=== PATIENT | female | born 1945 | race African-American/Black ===

== ENCOUNTER 2017-07-02 11:06 | Inpatient (IN) ==
[2017-07-02] MEDS ORDERED: SODIUM CHLORIDE 0.9% 500 ML IV STA (11:24)
[2017-07-02] MEDS ORDERED: ACETAMINOPHEN 500 MG TABLET PO STA (11:43)
[2017-07-02] MEDS ORDERED: ACETAMINOPHEN 500 MG TABLET ONE (11:44)
[2017-07-02 12:29] LABS: Basophils % 0.1 % (0.0-0.8); Eosinophils % 0.2 % (0.00-10.9); Hematocrit 36.6 VOL% (35.7-47.0); Hemoglobin 12.1 GM/DL (12.0-16.0); Immature Granulocytes % 0.4 %; Immature Granulocytes Absolute 0.07 #; Lymphocytes # 0.7 10*3/uL (1.4-4.0); Lymphocytes % 4.1 % (21.3-54.2); Mean Corpuscular HGB Conc 33.1 GM/DL (32-36); Mean Corpuscular Hemoglobin 27 PG (27-34); Mean Corpuscular Volume 82.8 FL (87-102); Mean Platelet Volume 10.8 FL (9.6-12.0); Monocytes # 0.7 10*3/uL (0.11-0.8); Monocytes % 4.3 % (1.7-12.7); Neutrophils # 15.3 10*3/uL (1.4-7.4); Neutrophils % 90.9 % (38.7-73.9); Platelet Count 242 T/CUMM (130-400); Red Blood Count 4.42 MC/CUMM (3.8-5.5); Red Cell Distribution Width 15.2 % (9.3-17.3); White Blood Count 16.8 T/CUMM (4-12)
[2017-07-02 12:48] LABS: Lactic Acid 2.3 MMOL/L (0.4-2.0)
[2017-07-02] MEDS ORDERED: SODIUM CHLORIDE 0.9% 3,450 ML IV ONE ×2 (12:58→15:43)
[2017-07-02 13:02] LABS: Albumin 3.2 G/DL (3.4-5.0); Bilirubin,Total 0.6 MG/DL (0.2-1.0); Calcium 9.1 MG/DL (8.5-10.1); Potassium 3.2 MMOL/L (3.5-5.1); Total Protein 6.6 G/DL (6.4-8.3)
[2017-07-02] MEDS ORDERED: PIPERACILLIN/TAZOBACTAM 3,375 MG VIAL IV ONE (13:08)
[2017-07-02] MEDS ORDERED: SODIUM CHLORIDE 0.9% 100 ML IV ONE (13:09)
[2017-07-02] MEDS: PIPERACILLIN/TAZOBACTAM 3,375 MG in SODIUM CHLORIDE 0.9% 100 ML IV SCH ×2 (13:42→23:51)
[2017-07-02 13:47] LABS: Sedimentation Rate-Westergren 50 MM/HR (0-30)
[2017-07-02 13:54] LABS: Apearance,Urine Slightly Hazy (Clear); Bilirubin,Urine Negative (Negative); Blood, Urine Moderate mg/dL (Negative); Glucose,Urine (UA) Negative (Negative); Ketones,Urine 5 mg/dL (Negative); Mucus,Urine Occasional /LPF (Occasional); Nitrite,Urine Negative (Negative); Protein,Urine 100 MG/DL; RBC,Urine 7 /HPF (0-4); Squamous Epithelial Cell,Urine Occasional /HPF (0-10); Urine Color Yellow (Yellow); Urine Urobilinogen < 2.0 EU/DL (0.2-1.0); WBC,Urine 3 /HPF (0-6)
[2017-07-02] MEDS ORDERED: ONDANSETRON 4 MG/2 ML VIAL IV STA (15:00)
[2017-07-02] MEDS ORDERED: ONDANSETRON 4 MG/2 ML VIAL ONE (15:01)
[2017-07-02] MEDS ORDERED: ONDANSETRON 4 MG/2 ML VIAL IV PRN (16:08)
[2017-07-02] MEDS: SODIUM CHLORIDE 0.9% 1,000 ML IV SCH (17:10)
[2017-07-02] MEDS: METOPROLOL TARTRATE 25 MG TABLET PO SCH (17:27)
[2017-07-02] MEDS ORDERED: VANCOMYCIN INJ 1,000 MG in SODIUM CHLORIDE 0.9% 250 ML IV SCH (18:00)
[2017-07-02] MEDS: VANCOMYCIN INJ 1,750 MG in SODIUM CHLORIDE 0.9% 500 ML IV SCH (20:25)
[2017-07-02] MEDS: ATORVASTATIN 80 MG TABLET PO SCH (20:26)
[2017-07-02] MEDS: PHENYTOIN ER 100 MG CAPSULE PO SCH (20:26)
[2017-07-02] MEDS: levETIRAcetam 500 MG TABLET PO SCH (20:26)
[2017-07-02] MEDS: PANTOPRAZOLE 40 MG TABLET PO SCH (20:26)
[2017-07-02] MEDS: IBUPROFEN 600 MG TABLET PO PRN (21:08)
[2017-07-02] MEDS: diphenhydrAMINE 50 MG/1 ML VIAL IV PRN (22:24)
[2017-07-03 05:48] LABS: Eosinophils # 0.3 10*3/uL (0.0-0.87); Eosinophils % 3.4 % (0.00-10.9); Hemoglobin 10.5 GM/DL (12.0-16.0); Immature Granulocytes % 0.3 %; Immature Granulocytes Absolute 0.03 #; Lymphocytes # 1.1 10*3/uL (1.4-4.0); Lymphocytes % 11.6 % (21.3-54.2); Mean Corpuscular HGB Conc 31.8 GM/DL (32-36); Mean Corpuscular Hemoglobin 27 PG (27-34); Mean Corpuscular Volume 84.6 FL (87-102); Mean Platelet Volume 11.1 FL (9.6-12.0); Monocytes # 0.2 10*3/uL (0.11-0.8); Monocytes % 2.2 % (1.7-12.7); Neutrophils # 7.9 10*3/uL (1.4-7.4); Neutrophils % 82.5 % (38.7-73.9); Platelet Count 206 T/CUMM (130-400); Red Cell Distribution Width 15.5 % (9.3-17.3); White Blood Count 9.5 T/CUMM (4-12)
[2017-07-03] MEDS: PIPERACILLIN/TAZOBACTAM 3,375 MG in SODIUM CHLORIDE 0.9% 100 ML IV SCH ×3 (07:46→21:56)
[2017-07-03] MEDS: ASPIRIN CHEW 81 MG TABLET PO SCH ×2 (08:24→11:16)
[2017-07-03] MEDS: PANTOPRAZOLE 40 MG TABLET PO SCH ×2 (08:24→10:42)
[2017-07-03] MEDS: levETIRAcetam 500 MG TABLET PO SCH ×2 (08:24→21:52)
[2017-07-03] MEDS: METOPROLOL TARTRATE 25 MG TABLET PO SCH ×3 (08:24→16:18)
[2017-07-03] MEDS: FERROUS SULFATE 325 MG TABLET PO SCH (08:24)
[2017-07-03] MEDS: THIAMINE 100 MG TABLET PO SCH (08:24)
[2017-07-03 08:33] LABS: Band Neutrophils 1 % (0-10); Eosinophils 5 % (0-10); Giant Platelets Few; Hypochromasia Slight; Lymphocytes 10 % (20-55); Platelet Estimate Adequate; Segmented Neutrophils 82 % (50-85); Total Cells Counted 100
[2017-07-03] MEDS: VANCOMYCIN INJ 1,750 MG in SODIUM CHLORIDE 0.9% 500 ML IV SCH (14:33)
[2017-07-03] MEDS: SODIUM CHLORIDE 0.9% 1,000 ML IV SCH ×2 (14:33→22:19)
[2017-07-03] MEDS: IBUPROFEN 600 MG TABLET PO PRN (16:21)
[2017-07-03] MEDS: diphenhydrAMINE 50 MG/1 ML VIAL IV PRN (18:45)
[2017-07-03] MEDS: PHENYTOIN ER 100 MG CAPSULE PO SCH (21:55)
[2017-07-03] MEDS: ATORVASTATIN 80 MG TABLET PO SCH (21:56)
[2017-07-04 02:45] LABS: Basophils % 0.2 % (0.0-0.8); Eosinophils # 0.7 10*3/uL (0.0-0.87); Eosinophils % 11.5 % (0.00-10.9); Hematocrit 31.4 VOL% (35.7-47.0); Hemoglobin 10.1 GM/DL (12.0-16.0); Immature Granulocytes % 0.2 %; Immature Granulocytes Absolute 0.01 #; Lymphocytes # 1.6 10*3/uL (1.4-4.0); Mean Corpuscular HGB Conc 32.2 GM/DL (32-36); Mean Corpuscular Hemoglobin 27 PG (27-34); Mean Corpuscular Volume 83.1 FL (87-102); Mean Platelet Volume 10.9 FL (9.6-12.0); Monocytes # 0.4 10*3/uL (0.11-0.8); Monocytes % 5.9 % (1.7-12.7); Neutrophils # 3.7 10*3/uL (1.4-7.4); Neutrophils % 57.2 % (38.7-73.9); Platelet Count 202 T/CUMM (130-400); Red Blood Count 3.78 MC/CUMM (3.8-5.5); Red Cell Distribution Width 15.4 % (9.3-17.3); White Blood Count 6.4 T/CUMM (4-12)
[2017-07-04 03:17] LABS: Potassium 3.4 MMOL/L (3.5-5.1)
[2017-07-04] MEDS: IBUPROFEN 600 MG TABLET PO PRN (04:23)
[2017-07-04] MEDS: diphenhydrAMINE 50 MG/1 ML VIAL IV PRN (04:24)
[2017-07-04 05:29] LABS: Band Neutrophils 2 % (0-10); Eosinophils 8 % (0-10); Lymphocytes 25 % (20-55); Platelet Estimate Normal; Segmented Neutrophils 59 % (50-85); Total Cells Counted 100
[2017-07-04 05:30] LABS: Anisocytosis Slight; Macrocytosis Slight
[2017-07-04] MEDS: PIPERACILLIN/TAZOBACTAM 3,375 MG in SODIUM CHLORIDE 0.9% 100 ML IV SCH ×3 (06:02→23:55)
[2017-07-04] MEDS: FERROUS SULFATE 325 MG TABLET PO SCH (08:39)
[2017-07-04] MEDS: PANTOPRAZOLE 40 MG TABLET PO SCH (08:39)
[2017-07-04] MEDS: METOPROLOL TARTRATE 25 MG TABLET PO SCH ×2 (08:39→17:15)
[2017-07-04] MEDS: ASPIRIN CHEW 81 MG TABLET PO SCH (08:40)
[2017-07-04] MEDS: levETIRAcetam 500 MG TABLET PO SCH ×2 (08:40→21:33)
[2017-07-04] MEDS: THIAMINE 100 MG TABLET PO SCH (08:40)
[2017-07-04] MEDS: VANCOMYCIN INJ 1,750 MG in SODIUM CHLORIDE 0.9% 500 ML IV SCH (12:55)
[2017-07-04] MEDS: SODIUM CHLORIDE 0.9% 1,000 ML IV SCH (15:38)
[2017-07-04] MEDS: PHENYTOIN ER 100 MG CAPSULE PO SCH (21:33)
[2017-07-04] MEDS: ATORVASTATIN 80 MG TABLET PO SCH (21:34)
[2017-07-05 05:26] LABS: Eosinophils # 0.6 10*3/uL (0.0-0.87); Eosinophils % 15.1 % (0.00-10.9); Hematocrit 29.3 VOL% (35.7-47.0); Hemoglobin 9.5 GM/DL (12.0-16.0); Lymphocytes # 1.4 10*3/uL (1.4-4.0); Lymphocytes % 38.6 % (21.3-54.2); Mean Corpuscular HGB Conc 32.4 GM/DL (32-36); Mean Corpuscular Hemoglobin 27 PG (27-34); Mean Corpuscular Volume 83.5 FL (87-102); Mean Platelet Volume 10.8 FL (9.6-12.0); Monocytes # 0.3 10*3/uL (0.11-0.8); Monocytes % 8.5 % (1.7-12.7); Neutrophils # 1.4 10*3/uL (1.4-7.4); Neutrophils % 37.8 % (38.7-73.9); Platelet Count 202 T/CUMM (130-400); Red Blood Count 3.51 MC/CUMM (3.8-5.5); Red Cell Distribution Width 15.6 % (9.3-17.3); White Blood Count 3.7 T/CUMM (4-12)
[2017-07-05 05:50] LABS: Eosinophils 19 % (0-10); Hypochromasia 1+; Lymphocytes 32 % (20-55); Ovalocytes Slight; Platelet Estimate Adequate; Segmented Neutrophils 41 % (50-85); Total Cells Counted 100
[2017-07-05 05:51] LABS: Giant Platelets Few; Macrocytosis Slight
[2017-07-05 05:58] LABS: Calcium 8.3 MG/DL (8.5-10.1); Osmolality,Calculated 290.4 MOS/KG (273-304); Potassium 3.5 MMOL/L (3.5-5.1)
[2017-07-05] MEDS: THIAMINE 100 MG TABLET PO SCH (08:48)
[2017-07-05] MEDS: levETIRAcetam 500 MG TABLET PO SCH (08:49)
[2017-07-05] MEDS: FERROUS SULFATE 325 MG TABLET PO SCH (08:49)
[2017-07-05] MEDS: PANTOPRAZOLE 40 MG TABLET PO SCH (08:49)
[2017-07-05] MEDS: METOPROLOL TARTRATE 25 MG TABLET PO SCH (08:49)
[2017-07-05] MEDS: ASPIRIN CHEW 81 MG TABLET PO SCH (08:49)
[2017-07-05] MEDS: PIPERACILLIN/TAZOBACTAM 3,375 MG in SODIUM CHLORIDE 0.9% 100 ML IV SCH (08:50)
[2017-07-05] MEDS ORDERED: AMOXICILLIN/CLAV 875 MG TABLET PO SCH (13:00)
[2017-07-05] MEDS: IBUPROFEN 600 MG TABLET PO PRN (13:42)
[2017-07-05] MEDS: diphenhydrAMINE 50 MG/1 ML VIAL IV PRN (13:46)
[2017-07-05] MEDS: SODIUM CHLORIDE 0.9% 1,000 ML IV SCH (14:05)
[2017-07-05] MEDS: VANCOMYCIN INJ 1,750 MG in SODIUM CHLORIDE 0.9% 500 ML IV SCH (14:46)
[2017-07-05 16:12] VITALS: BP 122/79
== END 2017-07-05 17:15 | disposition home health service (06) | DRG 872 ==
LOC: EDBD → EDUNIT# → N.ED 11:06 → N.EDINP 14:08 → N.3E 16:07
PROVIDERS: ADMIT Internal Medicine; ATTEND Internal Medicine

== ENCOUNTER 2019-04-18 13:02 | Observation (INO) ==
[2019-04-18 14:31] LABS: Basophils % 0.2 % (0.0-0.8); Eosinophils # 0.9 10*3/uL (0.0-0.87); Hematocrit 38.4 VOL% (35.7-47.0); Hemoglobin 12.3 GM/DL (12.0-16.0); Immature Granulocytes % 0.4 %; Immature Granulocytes Absolute 0.04 #; Lymphocytes # 3.1 10*3/uL (1.4-4.0); Lymphocytes % 29.3 % (21.3-54.2); Mean Corpuscular Volume 91.9 FL (87-102); Mean Platelet Volume 11.4 FL (9.6-12.0); Monocytes % 7.3 % (1.7-12.7); Neutrophils % 54.8 % (38.7-73.9); Platelet Count 235 T/CUMM (130-400); Red Blood Count 4.18 MC/CUMM (3.8-5.5); Red Cell Distribution Width 15.4 % (9.3-17.3); White Blood Count 10.7 T/CUMM (4-12)
[2019-04-18 14:44] LABS: PT Patient Result 10.8 SECS (9.6-12.2); Partial Thromboplastin Time 26.4 SECS (20.8-36.0)
[2019-04-18 14:45] LABS: Calcium 10.1 MG/DL (8.5-10.1); Osmolality,Calculated 299.7 MOS/KG (273-304)
[2019-04-18] MEDS ORDERED: SODIUM CHLORIDE 0.9% 500 ML IV STA (14:46)
[2019-04-18] MEDS ORDERED: ONDANSETRON 4 MG/2 ML VIAL IV STA (14:46)
[2019-04-18 15:03] LABS: Apearance,Urine Slightly Hazy (Clear); Bacteria,Urine Occasional /HPF (Few); Bilirubin,Urine Negative (Negative); Blood, Urine Negative (Negative); Glucose,Urine (UA) Negative (Negative); Hyaline Casts,Urine 36 /LPF (0-3); Ketones,Urine Negative (Negative); Mucus,Urine Occasional /LPF (Occasional); Nitrite,Urine Negative (Negative); Protein,Urine Negative; RBC,Urine <1 /HPF (0-4); Squamous Epithelial Cell,Urine Occasional /HPF (0-10); Urine Color Yellow (Yellow); Urine Specific Gravity 1.017 (1.001-1.035); Urine Urobilinogen < 2.0 EU/DL (0.2-1.0); WBC,Urine <1 /HPF (0-6)
[2019-04-18] MEDS ORDERED: ONDANSETRON 4 MG/2 ML VIAL IV PRN (15:35)
[2019-04-18] MEDS ORDERED: PROMETHAZINE 25 MG/1 ML VIAL IM PRN (15:35)
[2019-04-18 15:44] LABS: Albumin 3.8 G/DL (3.4-5.0); Bilirubin,Total 0.6 MG/DL (0.2-1.0); Calcium 10.3 MG/DL (8.5-10.1); Osmolality,Calculated 297.8 MOS/KG (273-304)
[2019-04-18] MEDS: ENOXAPARIN 30 MG/0.3 ML SYRINGE SUBCUT SCH (17:25)
[2019-04-18] MEDS: PANTOPRAZOLE 40 MG TABLET PO SCH (17:25)
[2019-04-18] MEDS: DEXTROSE 5% NACL 0.45% 1,000 ML IV SCH (17:26)
[2019-04-18] MEDS: METOPROLOL TARTRATE 25 MG TABLET PO SCH (17:28)
[2019-04-18] MEDS: CHOLESTYRAMINE 4 GM PACK PO SCH (20:30)
[2019-04-18] MEDS: ATORVASTATIN 80 MG TABLET PO SCH (20:31)
[2019-04-18] MEDS: levETIRAcetam 500 MG TABLET PO SCH (20:32)
[2019-04-19] MEDS: DEXTROSE 5% NACL 0.45% 1,000 ML IV SCH ×5 (00:21→22:27)
[2019-04-19 05:29] LABS: Basophils % 0.1 % (0.0-0.8); Eosinophils # 0.8 10*3/uL (0.0-0.87); Eosinophils % 10.3 % (0.00-10.9); Hematocrit 32.9 VOL% (35.7-47.0); Hemoglobin 10.5 GM/DL (12.0-16.0); Immature Granulocytes % 0.3 %; Immature Granulocytes Absolute 0.02 #; Lymphocytes # 2.6 10*3/uL (1.4-4.0); Lymphocytes % 35.4 % (21.3-54.2); Mean Corpuscular HGB Conc 31.9 GM/DL (32-36); Mean Corpuscular Volume 92.2 FL (87-102); Mean Platelet Volume 11.3 FL (9.6-12.0); Neutrophils % 46.9 % (38.7-73.9); Platelet Count 192 T/CUMM (130-400); Red Blood Count 3.57 MC/CUMM (3.8-5.5); Red Cell Distribution Width 15.2 % (9.3-17.3); White Blood Count 7.3 T/CUMM (4-12)
[2019-04-19 05:58] LABS: Bilirubin,Total 0.6 MG/DL (0.2-1.0); Calcium 9.4 MG/DL (8.5-10.1); Risk Ratio 2.76; Thyroid Stimulating Hormone 1.03 uIU/ml (0.358-3.74); Total Protein 6.3 G/DL (6.4-8.3); VLDL CHOLESTEROL 19.2 MG/DL
[2019-04-19] MEDS: levETIRAcetam 500 MG TABLET PO SCH ×2 (08:37→20:22)
[2019-04-19] MEDS: PANTOPRAZOLE 40 MG TABLET PO SCH (08:38)
[2019-04-19] MEDS: METOPROLOL TARTRATE 25 MG TABLET PO SCH ×2 (08:38→17:15)
[2019-04-19] MEDS: ASPIRIN CHEW 81 MG TABLET PO SCH (08:38)
[2019-04-19] MEDS: ALLOPURINOL 100 MG TABLET PO SCH (08:38)
[2019-04-19] MEDS: CHOLESTYRAMINE 4 GM PACK PO SCH ×2 (08:38→20:21)
[2019-04-19] MEDS ORDERED: MAGNESIUM SULF RIDER 2 GM in PREMIX 1 EACH IV ONE (10:34)
[2019-04-19] MEDS ORDERED: LOPERAMIDE 2 MG CAPSULE PO ONE (14:20)
[2019-04-19] MEDS: ENOXAPARIN 30 MG/0.3 ML SYRINGE SUBCUT SCH (15:27)
[2019-04-19] MEDS: ATORVASTATIN 80 MG TABLET PO SCH (20:22)
[2019-04-20 04:45] LABS: Basophils % 0.3 % (0.0-0.8); Eosinophils # 0.6 10*3/uL (0.0-0.87); Eosinophils % 9.3 % (0.00-10.9); Hematocrit 31.7 VOL% (35.7-47.0); Immature Granulocytes % 0.2 %; Immature Granulocytes Absolute 0.01 #; Lymphocytes # 2.8 10*3/uL (1.4-4.0); Lymphocytes % 41.9 % (21.3-54.2); Mean Corpuscular HGB Conc 31.5 GM/DL (32-36); Mean Corpuscular Volume 91.1 FL (87-102); Mean Platelet Volume 12.1 FL (9.6-12.0); Monocytes % 9.1 % (1.7-12.7); Neutrophils % 39.2 % (38.7-73.9); Platelet Count 197 T/CUMM (130-400); Red Blood Count 3.48 MC/CUMM (3.8-5.5); Red Cell Distribution Width 15.1 % (9.3-17.3); White Blood Count 6.6 T/CUMM (4-12)
[2019-04-20 05:03] LABS: Calcium 9.1 MG/DL (8.5-10.1)
[2019-04-20] MEDS: DEXTROSE 5% NACL 0.45% 1,000 ML IV SCH (05:40)
[2019-04-20] MEDS: levETIRAcetam 500 MG TABLET PO SCH (08:29)
[2019-04-20] MEDS: CHOLESTYRAMINE 4 GM PACK PO SCH (08:30)
[2019-04-20] MEDS: PANTOPRAZOLE 40 MG TABLET PO SCH (08:30)
[2019-04-20] MEDS: METOPROLOL TARTRATE 25 MG TABLET PO SCH (08:30)
[2019-04-20] MEDS: ASPIRIN CHEW 81 MG TABLET PO SCH (08:30)
[2019-04-20] MEDS: ALLOPURINOL 100 MG TABLET PO SCH (08:30)
[2019-04-20 09:43] VITALS: BP 104/53
== END 2019-04-20 11:24 | disposition home health service (06) ==
LOC: N.ED 13:02 → N.EDINP 13:02 → N.5E 16:42
PROVIDERS: ADMIT Internal Medicine; ATTEND Internal Medicine

== ENCOUNTER 2019-09-11 11:32 | Observation (INO) ==
[2019-09-11 13:06] LABS: Basophils % 0.4 % (0.0-0.8); Eosinophils # 0.4 10*3/uL (0.0-0.87); Eosinophils % 4.6 % (0.00-10.9); Hematocrit 36.2 VOL% (35.7-47.0); Hemoglobin 11.6 GM/DL (12.0-16.0); Immature Granulocytes % 0.3 %; Immature Granulocytes Absolute 0.02 #; Lymphocytes # 2.7 10*3/uL (1.4-4.0); Lymphocytes % 34.1 % (21.3-54.2); Mean Corpuscular Volume 89.4 FL (87-102); Monocytes % 9.4 % (1.7-12.7); Neutrophils % 51.2 % (38.7-73.9); Platelet Count 239 T/CUMM (130-400); Red Blood Count 4.05 MC/CUMM (3.8-5.5); Red Cell Distribution Width 14.8 % (9.3-17.3); White Blood Count 7.9 T/CUMM (4-12)
[2019-09-11 13:33] LABS: Calcium 9.3 MG/DL (8.5-10.1); Osmolality,Calculated 280.3 MOS/KG (273-304)
[2019-09-11] MEDS ORDERED: ONDANSETRON 4 MG/2 ML VIAL IV PRN (15:46)
[2019-09-11] MEDS ORDERED: BISACODYL 5 MG TABLET PO PRN (15:46)
[2019-09-11] MEDS ORDERED: VANCOMYCIN INJ 1,500 MG in SODIUM CHLORIDE 0.9% 500 ML IV STA (15:52)
[2019-09-11] MEDS: ENOXAPARIN 40 MG/0.4 ML SYRINGE SUBCUT SCH (18:20)
[2019-09-11] MEDS: METOPROLOL TARTRATE 25 MG TABLET PO SCH (18:20)
[2019-09-11] MEDS ORDERED: allopurinoL 300 MG TABLET PO ONE (18:22)
[2019-09-11] MEDS ORDERED: COLCHICINE 0.6 MG CAPSULE PO ONE (18:22)
[2019-09-11] MEDS: levETIRAcetam 500 MG TABLET PO SCH (21:38)
[2019-09-11] MEDS: ATORVASTATIN 80 MG TABLET PO SCH (21:38)
[2019-09-11] MEDS: CLINDAMYCIN INJ 600 MG in PREMIX 1 EACH IV SCH (21:46)
[2019-09-12] MEDS: CLINDAMYCIN INJ 600 MG in PREMIX 1 EACH IV SCH ×3 (05:33→21:34)
[2019-09-12] MEDS: allopurinoL 300 MG TABLET PO SCH (09:12)
[2019-09-12] MEDS: PANTOPRAZOLE 40 MG TABLET PO SCH (09:13)
[2019-09-12] MEDS: ASPIRIN CHEW 81 MG TABLET PO SCH (09:13)
[2019-09-12] MEDS: METOPROLOL TARTRATE 25 MG TABLET PO SCH ×2 (09:14→16:18)
[2019-09-12] MEDS: LOSARTAN/HCTZ 50-12.5 MG TABLET PO SCH (09:14)
[2019-09-12] MEDS: COLCHICINE 0.6 MG CAPSULE PO SCH (09:14)
[2019-09-12] MEDS: levETIRAcetam 500 MG TABLET PO SCH (09:17)
[2019-09-12] MEDS: ENOXAPARIN 40 MG/0.4 ML SYRINGE SUBCUT SCH (16:19)
[2019-09-12] MEDS: ATORVASTATIN 80 MG TABLET PO SCH (21:28)
[2019-09-12] MEDS: CHLORHEXIDINE 0.12% ORAL RINSE 60 ML BOTTLE SWISH/SPIT SCH (21:29)
[2019-09-13] MEDS: CLINDAMYCIN INJ 600 MG in PREMIX 1 EACH IV SCH (05:43)
[2019-09-13 08:28] VITALS: BP 112/63
[2019-09-13] MEDS: LOSARTAN/HCTZ 50-12.5 MG TABLET PO SCH (08:29)
[2019-09-13] MEDS: METOPROLOL TARTRATE 25 MG TABLET PO SCH (08:30)
[2019-09-13] MEDS: ASPIRIN CHEW 81 MG TABLET PO SCH (08:30)
[2019-09-13] MEDS: COLCHICINE 0.6 MG CAPSULE PO SCH (08:30)
[2019-09-13] MEDS: allopurinoL 300 MG TABLET PO SCH (08:30)
[2019-09-13] MEDS: PANTOPRAZOLE 40 MG TABLET PO SCH (08:30)
[2019-09-13] MEDS: CHLORHEXIDINE 0.12% ORAL RINSE 60 ML BOTTLE SWISH/SPIT SCH (08:31)
== END 2019-09-13 13:05 | disposition home or self-care (01) ==
LOC: EDUNIT# → EDBD → N.ED 11:32 → N.EDINP 11:32 → SUATTDRO 15:46 → N.2W 17:29
PROVIDERS: ADMIT Internal Medicine; ATTEND Internal Medicine

== ENCOUNTER 2020-06-03 09:13 | Inpatient (IN) ==
[2020-06-03] MEDS ORDERED: SODIUM CHLORIDE 0.9% 1,000 ML IV STA (10:06)
[2020-06-03 10:50] LABS: Basophils % 0.2 % (0.0-0.8); Eosinophils % 0.3 % (0.00-10.9); Hematocrit 39.6 VOL% (35.7-47.0); Hemoglobin 13.3 GM/DL (12.0-16.0); Immature Granulocytes % 0.2 %; Immature Granulocytes Absolute 0.03 #; Lymphocytes # 2.3 10*3/uL (1.4-4.0); Lymphocytes % 18.5 % (21.3-54.2); Mean Corpuscular HGB Conc 33.6 GM/DL (32-36); Mean Corpuscular Volume 87.2 FL (87-102); Mean Platelet Volume 11.3 FL (9.6-12.0); Monocytes % 9.9 % (1.7-12.7); Neutrophils % 70.9 % (38.7-73.9); Platelet Count 219 T/CUMM (130-400); Red Blood Count 4.54 MC/CUMM (3.8-5.5); Red Cell Distribution Width 14.8 % (9.3-17.3); White Blood Count 12.4 T/CUMM (4-12)
[2020-06-03 11:03] LABS: Calcium 9.8 MG/DL (8.5-10.1); Osmolality,Calculated 277.5 MOS/KG (273-304)
[2020-06-03] MEDS ORDERED: MORPHINE 4 MG/1 ML VIAL IV STA ×2 (11:24→13:35)
[2020-06-03] MEDS ORDERED: ONDANSETRON 4 MG/2 ML VIAL IV STA ×2 (11:27→11:33)
[2020-06-03] MEDS ORDERED: diphenhydrAMINE 50 MG/1 ML VIAL IV STA (11:33)
[2020-06-03] MEDS ORDERED: PIPERACILLIN/TAZOBACTAM 3,375 MG in SODIUM CHLORIDE 0.9% 100 ML IV STA (13:31)
[2020-06-03] MEDS ORDERED: GLUCAGON 1 MG VIAL IM PRN (14:33)
[2020-06-03] MEDS ORDERED: ONDANSETRON 4 MG/2 ML VIAL IV PRN (14:33)
[2020-06-03] MEDS ORDERED: DEXTROSE 50% 25 GM/50 ML VIAL IV PRN (14:33)
[2020-06-03] MEDS ORDERED: hydrALAZINE 20 MG/1 ML VIAL IV PRN (14:33)
[2020-06-03] MEDS ORDERED: PROMETHAZINE 25 MG/1 ML VIAL IM PRN (14:33)
[2020-06-03] MEDS ORDERED: diphenhydrAMINE CAP 25 MG CAPSULE PO PRN (14:33)
[2020-06-03] MEDS ORDERED: guaiFENesin/DM ER 600-30 MG TABLET PO PRN (14:33)
[2020-06-03] MEDS: SODIUM CHLORIDE 0.9% 1,000 ML IV SCH ×2 (16:34→23:00)
[2020-06-03] MEDS: ENOXAPARIN 40 MG/0.4 ML SYRINGE SUBCUT SCH (20:55)
[2020-06-03] MEDS: IBUPROFEN 400 MG TABLET PO PRN (20:55)
[2020-06-03] MEDS: MORPHINE 4 MG/1 ML VIAL IV PRN (20:56)
[2020-06-03] MEDS: PIPERACILLIN/TAZOBACTAM 3,375 MG in SODIUM CHLORIDE 0.9% 100 ML IV SCH (20:59)
[2020-06-04] MEDS: SODIUM CHLORIDE 0.9% 1,000 ML IV SCH ×5 (04:09→23:00)
[2020-06-04] MEDS: PIPERACILLIN/TAZOBACTAM 3,375 MG in SODIUM CHLORIDE 0.9% 100 ML IV SCH ×3 (04:10→20:24)
[2020-06-04] MEDS: MORPHINE 4 MG/1 ML VIAL IV PRN ×4 (05:22→20:20)
[2020-06-04 06:07] LABS: Basophils % 0.2 % (0.0-0.8); Eosinophils # 0.1 10*3/uL (0.0-0.87); Eosinophils % 0.4 % (0.00-10.9); Hematocrit 34.2 VOL% (35.7-47.0); Hemoglobin 11.4 GM/DL (12.0-16.0); Immature Granulocytes % 0.2 %; Immature Granulocytes Absolute 0.03 #; Lymphocytes # 2.5 10*3/uL (1.4-4.0); Lymphocytes % 20.1 % (21.3-54.2); Mean Corpuscular HGB Conc 33.3 GM/DL (32-36); Mean Corpuscular Volume 88.8 FL (87-102); Mean Platelet Volume 11.2 FL (9.6-12.0); Monocytes % 10.3 % (1.7-12.7); Neutrophils % 68.8 % (38.7-73.9); Platelet Count 198 T/CUMM (130-400); Red Blood Count 3.85 MC/CUMM (3.8-5.5); Red Cell Distribution Width 14.9 % (9.3-17.3); White Blood Count 12.6 T/CUMM (4-12)
[2020-06-04 06:29] LABS: Albumin 2.6 G/DL (3.4-5.0); Bilirubin,Total 1.8 MG/DL (0.2-1.0); Calcium 8.7 MG/DL (8.5-10.1); Osmolality,Calculated 283.1 MOS/KG (273-304); Risk Ratio 2.38; Thyroid Stimulating Hormone 1.97 uIU/ml (0.358-3.74); Total Protein 6.5 G/DL (6.4-8.3)
[2020-06-04] MEDS: CHLORHEXIDINE 0.12% ORAL RINSE 60 ML BOTTLE SWISH/SPIT SCH ×2 (09:56→20:20)
[2020-06-04] MEDS: IBUPROFEN 400 MG TABLET PO PRN (15:55)
[2020-06-04] MEDS: ENOXAPARIN 40 MG/0.4 ML SYRINGE SUBCUT SCH (20:19)
[2020-06-05] MEDS: MORPHINE 4 MG/1 ML VIAL IV PRN ×4 (00:54→20:02)
[2020-06-05] MEDS: PIPERACILLIN/TAZOBACTAM 3,375 MG in SODIUM CHLORIDE 0.9% 100 ML IV SCH ×3 (04:46→20:02)
[2020-06-05 05:05] LABS: Basophils % 0.2 % (0.0-0.8); Eosinophils # 0.1 10*3/uL (0.0-0.87); Eosinophils % 0.7 % (0.00-10.9); Hematocrit 34.1 VOL% (35.7-47.0); Immature Granulocytes % 0.4 %; Immature Granulocytes Absolute 0.05 #; Lymphocytes # 2.1 10*3/uL (1.4-4.0); Lymphocytes % 17.1 % (21.3-54.2); Mean Corpuscular HGB Conc 32.3 GM/DL (32-36); Mean Corpuscular Volume 90.2 FL (87-102); Mean Platelet Volume 11.1 FL (9.6-12.0); Monocytes % 8.5 % (1.7-12.7); Neutrophils % 73.1 % (38.7-73.9); Platelet Count 194 T/CUMM (130-400); Red Blood Count 3.78 MC/CUMM (3.8-5.5); Red Cell Distribution Width 14.7 % (9.3-17.3)
[2020-06-05 05:27] LABS: Albumin 2.6 G/DL (3.4-5.0); Bilirubin,Total 0.9 MG/DL (0.2-1.0); Osmolality,Calculated 277.4 MOS/KG (273-304); Total Protein 6.9 G/DL (6.4-8.3)
[2020-06-05] MEDS: SODIUM CHLORIDE 0.9% 1,000 ML IV SCH ×2 (08:05→14:27)
[2020-06-05] MEDS: CHLORHEXIDINE 0.12% ORAL RINSE 60 ML BOTTLE SWISH/SPIT SCH ×2 (08:06→20:03)
[2020-06-05] MEDS: ENOXAPARIN 40 MG/0.4 ML SYRINGE SUBCUT SCH (20:03)
[2020-06-06] MEDS: PIPERACILLIN/TAZOBACTAM 3,375 MG in SODIUM CHLORIDE 0.9% 100 ML IV SCH ×3 (05:35→21:23)
[2020-06-06] MEDS: SODIUM CHLORIDE 0.9% 1,000 ML IV SCH ×3 (06:13→18:30)
[2020-06-06 06:19] LABS: Basophils % 0.2 % (0.0-0.8); Eosinophils # 0.1 10*3/uL (0.0-0.87); Eosinophils % 1.3 % (0.00-10.9); Hematocrit 31.6 VOL% (35.7-47.0); Hemoglobin 10.3 GM/DL (12.0-16.0); Immature Granulocytes % 0.3 %; Immature Granulocytes Absolute 0.03 #; Lymphocytes # 2.6 10*3/uL (1.4-4.0); Lymphocytes % 26.6 % (21.3-54.2); Mean Corpuscular HGB Conc 32.6 GM/DL (32-36); Mean Corpuscular Volume 89.8 FL (87-102); Mean Platelet Volume 11.7 FL (9.6-12.0); Monocytes % 10.2 % (1.7-12.7); Neutrophils % 61.4 % (38.7-73.9); Platelet Count 195 T/CUMM (130-400); Red Blood Count 3.52 MC/CUMM (3.8-5.5); Red Cell Distribution Width 14.8 % (9.3-17.3); White Blood Count 9.8 T/CUMM (4-12)
[2020-06-06 06:46] LABS: Albumin 2.1 G/DL (3.4-5.0); Bilirubin,Total 0.7 MG/DL (0.2-1.0); Calcium 8.9 MG/DL (8.5-10.1); Osmolality,Calculated 286.7 MOS/KG (273-304); Total Protein 6.1 G/DL (6.4-8.3)
[2020-06-06] MEDS: CHLORHEXIDINE 0.12% ORAL RINSE 60 ML BOTTLE SWISH/SPIT SCH ×2 (08:13→21:28)
[2020-06-06] MEDS: ALUMINUM/MAGNES/SIMETH MAX STR 30 ML UDCUP PO PRN ×2 (12:23→19:30)
[2020-06-06] MEDS: IBUPROFEN 400 MG TABLET PO PRN (15:11)
[2020-06-06] MEDS: ENOXAPARIN 40 MG/0.4 ML SYRINGE SUBCUT SCH (21:24)
[2020-06-06] MEDS: MORPHINE 4 MG/1 ML VIAL IV PRN (21:25)
[2020-06-07] MEDS: SODIUM CHLORIDE 0.9% 1,000 ML IV SCH ×3 (01:08→22:43)
[2020-06-07] MEDS: MORPHINE 4 MG/1 ML VIAL IV PRN ×3 (01:09→22:21)
[2020-06-07] MEDS: PIPERACILLIN/TAZOBACTAM 3,375 MG in SODIUM CHLORIDE 0.9% 100 ML IV SCH ×3 (04:02→20:01)
[2020-06-07] MEDS: PANTOPRAZOLE 20 MG TABLET PO SCH (08:54)
[2020-06-07] MEDS: CHLORHEXIDINE 0.12% ORAL RINSE 60 ML BOTTLE SWISH/SPIT SCH ×2 (08:55→22:39)
[2020-06-07 08:57] LABS: Basophils % 0.4 % (0.0-0.8); Eosinophils # 0.4 10*3/uL (0.0-0.87); Eosinophils % 5.5 % (0.00-10.9); Hematocrit 35.4 VOL% (35.7-47.0); Hemoglobin 11.3 GM/DL (12.0-16.0); Immature Granulocytes % 0.1 %; Immature Granulocytes Absolute 0.01 #; Lymphocytes # 2.7 10*3/uL (1.4-4.0); Lymphocytes % 36.7 % (21.3-54.2); Mean Corpuscular HGB Conc 31.9 GM/DL (32-36); Mean Corpuscular Volume 90.5 FL (87-102); Mean Platelet Volume 10.9 FL (9.6-12.0); Monocytes % 7.8 % (1.7-12.7); Neutrophils % 49.5 % (38.7-73.9); Platelet Count 221 T/CUMM (130-400); Red Blood Count 3.91 MC/CUMM (3.8-5.5); Red Cell Distribution Width 14.8 % (9.3-17.3); White Blood Count 7.3 T/CUMM (4-12)
[2020-06-07 09:21] LABS: Calcium 9.5 MG/DL (8.5-10.1); Osmolality,Calculated 282.1 MOS/KG (273-304)
[2020-06-07] MEDS: ALUMINUM/MAGNES/SIMETH MAX STR 30 ML UDCUP PO PRN (12:05)
[2020-06-07] MEDS: CALCIUM CARBONATE CHEW 500 MG TABLET PO PRN (15:41)
[2020-06-07] MEDS: ENOXAPARIN 40 MG/0.4 ML SYRINGE SUBCUT SCH (20:02)
[2020-06-08] MEDS: CALCIUM CARBONATE CHEW 500 MG TABLET PO PRN (01:37)
[2020-06-08] MEDS: SODIUM CHLORIDE 0.9% 1,000 ML IV SCH ×2 (03:40→08:51)
[2020-06-08] MEDS: PIPERACILLIN/TAZOBACTAM 3,375 MG in SODIUM CHLORIDE 0.9% 100 ML IV SCH (04:03)
[2020-06-08 06:27] LABS: Basophils % 0.4 % (0.0-0.8); Eosinophils # 0.4 10*3/uL (0.0-0.87); Eosinophils % 5.1 % (0.00-10.9); Hematocrit 31.7 VOL% (35.7-47.0); Hemoglobin 10.3 GM/DL (12.0-16.0); Immature Granulocytes % 0.3 %; Immature Granulocytes Absolute 0.02 #; Lymphocytes # 2.8 10*3/uL (1.4-4.0); Lymphocytes % 40.7 % (21.3-54.2); Mean Corpuscular HGB Conc 32.5 GM/DL (32-36); Mean Corpuscular Volume 88.8 FL (87-102); Mean Platelet Volume 11.3 FL (9.6-12.0); Monocytes % 8.2 % (1.7-12.7); Neutrophils % 45.3 % (38.7-73.9); Platelet Count 226 T/CUMM (130-400); Red Blood Count 3.57 MC/CUMM (3.8-5.5); Red Cell Distribution Width 14.4 % (9.3-17.3); White Blood Count 6.9 T/CUMM (4-12)
[2020-06-08 06:29] LABS: Calcium 8.7 MG/DL (8.5-10.1); Osmolality,Calculated 282.1 MOS/KG (273-304)
[2020-06-08] MEDS: PANTOPRAZOLE 20 MG TABLET PO SCH (08:51)
[2020-06-08] MEDS: CHLORHEXIDINE 0.12% ORAL RINSE 60 ML BOTTLE SWISH/SPIT SCH (08:51)
[2020-06-08 08:54] VITALS: BP 135/64
== END 2020-06-08 10:30 | disposition home or self-care (01) | DRG 155 ==
LOC: N.ED 09:13 → N.EDINP 14:33 → N.5E 16:23
PROVIDERS: ADMIT Family Medicine; ATTEND Family Medicine

== ENCOUNTER 2021-01-11 21:21 | Observation (INO) ==
[2021-01-11 21:51] LABS: Basophils # 0.1 10*3/uL (0.0-0.2); Basophils % 0.4 % (0.0-0.8); Eosinophils # 0.2 10*3/uL (0.0-0.87); Eosinophils % 1.6 % (0.00-10.9); Hematocrit 44.6 VOL% (35.7-47.0); Hemoglobin 14.5 GM/DL (12.0-16.0); Immature Granulocytes % 0.4 %; Immature Granulocytes Absolute 0.05 #; Lymphocytes % 38.2 % (21.3-54.2); Mean Corpuscular HGB Conc 32.5 GM/DL (32-36); Mean Corpuscular Volume 87.5 FL (87-102); Mean Platelet Volume 11.1 FL (9.6-12.0); Monocytes % 9.8 % (1.7-12.7); Neutrophils % 49.6 % (38.7-73.9); Platelet Count 256 T/CUMM (130-400); Red Cell Distribution Width 15.4 % (9.3-17.3); White Blood Count 13.2 T/CUMM (4-12)
[2021-01-11 22:02] LABS: PT Patient Result 11.3 SECS (10.5-12.0); Partial Thromboplastin Time 25.4 SECS (23.9-33.8)
[2021-01-11 22:12] LABS: Albumin 3.7 G/DL (3.4-5.0); Bilirubin,Total 0.4 MG/DL (0.2-1.0); Calcium 10.5 MG/DL (8.5-10.1); Osmolality,Calculated 285.3 MOS/KG (273-304); Total Protein 7.9 G/DL (6.4-8.2)
[2021-01-11] MEDS ORDERED: cefTRIAXone 1,000 MG in SODIUM CHLORIDE 0.9% 100 ML IV STA (23:15)
[2021-01-11] MEDS ORDERED: SODIUM CHLORIDE 0.9% 1,000 ML IV STA (23:15)
[2021-01-11 23:57] LABS: Bilirubin,Urine Negative (Negative); Blood, Urine Negative (Negative); Glucose,Urine (UA) Negative (Negative); Hyaline Casts,Urine 4 /LPF (0-3); Ketones,Urine Negative (Negative); Mucus,Urine Occasional /LPF (Occasional); Nitrite,Urine Negative (Negative); Protein,Urine Negative; RBC,Urine 1 /HPF (0-4); Squamous Epithelial Cell,Urine Occasional /HPF (0-10); Urine Appearance CLEAR (Clear); Urine Color Straw (Yellow); Urine Specific Gravity 1.006 (1.001-1.035); Urine Urobilinogen < 2.0 EU/DL (0.2-1.0)
[2021-01-12] MEDS ORDERED: diphenhydrAMINE CAP 25 MG CAPSULE PO PRN (00:30)
[2021-01-12] MEDS ORDERED: DOCUSATE SODIUM 100 MG CAPSULE PO PRN (00:30)
[2021-01-12] MEDS ORDERED: NICOTINE 21 MG/24 HR PATCH TRANSDERM PRN (00:30)
[2021-01-12] MEDS ORDERED: DEXTROSE 50% 25 GM/50 ML VIAL IV PRN (00:30)
[2021-01-12] MEDS ORDERED: POTASSIUM CHLORIDE 20 MEQ TABLET PO STA (00:30)
[2021-01-12] MEDS ORDERED: ONDANSETRON 4 MG/2 ML VIAL IV PRN (00:30)
[2021-01-12] MEDS ORDERED: ZALEPLON 5 MG CAPSULE PO PRN (00:30)
[2021-01-12] MEDS ORDERED: GLUCAGON 1 MG VIAL IM PRN (00:30)
[2021-01-12] MEDS ORDERED: guaiFENesin/DM ER 600-30 MG TABLET PO PRN (00:30)
[2021-01-12] MEDS ORDERED: ACETAMINOPHEN 325 MG TABLET PO PRN (00:30)
[2021-01-12] MEDS ORDERED: hydrALAZINE 20 MG/1 ML VIAL IV PRN (00:30)
[2021-01-12] MEDS: SODIUM CHLORIDE 0.9% 1,000 ML IV SCH ×2 (02:32→12:20)
[2021-01-12] MEDS: CLINDAMYCIN INJ 600 MG/50 ML PREMIX IV SCH ×4 (02:35→20:42)
[2021-01-12 05:27] LABS: Basophils % 0.3 % (0.0-0.8); Eosinophils # 0.2 10*3/uL (0.0-0.87); Eosinophils % 1.7 % (0.00-10.9); Hematocrit 37.8 VOL% (35.7-47.0); Hemoglobin 12.7 GM/DL (12.0-16.0); Immature Granulocytes % 0.2 %; Immature Granulocytes Absolute 0.02 #; Lymphocytes # 4.1 10*3/uL (1.4-4.0); Lymphocytes % 41.3 % (21.3-54.2); Mean Corpuscular HGB Conc 33.6 GM/DL (32-36); Mean Corpuscular Volume 87.3 FL (87-102); Monocytes % 10.1 % (1.7-12.7); Neutrophils % 46.4 % (38.7-73.9); Platelet Count 222 T/CUMM (130-400); Red Blood Count 4.33 MC/CUMM (3.8-5.5); Red Cell Distribution Width 15.1 % (9.3-17.3); White Blood Count 9.8 T/CUMM (4-12)
[2021-01-12 05:35] LABS: Calcium 9.7 MG/DL (8.5-10.1); Osmolality,Calculated 285.1 MOS/KG (273-304); Potassium 3.1 MMOL/L (3.5-5.1)
[2021-01-12] MEDS: MORPHINE 4 MG/1 ML VIAL IV PRN ×3 (05:41→23:00)
[2021-01-12] MEDS ORDERED: POTASSIUM CHLORIDE 20 MEQ TABLET PO ONE (06:55)
[2021-01-12] MEDS ORDERED: MAGNESIUM SULFATE 1 GM/2 ML VIAL IM ONE (06:56)
[2021-01-12] MEDS ORDERED: MAGNESIUM SULF RIDER 4 GM/100 ML PREMIX IV ONE (07:54)
[2021-01-12] MEDS: POTASSIUM CHLORIDE 20 MEQ TABLET PO SCH (09:26)
[2021-01-12] MEDS: PANTOPRAZOLE 40 MG TABLET PO SCH (09:26)
[2021-01-12] MEDS: ENOXAPARIN 40 MG/0.4 ML SYRINGE SUBCUT SCH (09:26)
[2021-01-13] MEDS: CLINDAMYCIN INJ 600 MG/50 ML PREMIX IV SCH ×2 (01:48→09:42)
[2021-01-13] MEDS: SODIUM CHLORIDE 0.9% 1,000 ML IV SCH (04:41)
[2021-01-13 06:02] LABS: Basophils % 0.4 % (0.0-0.8); Eosinophils # 0.2 10*3/uL (0.0-0.87); Eosinophils % 3.4 % (0.00-10.9); Hematocrit 35.9 VOL% (35.7-47.0); Hemoglobin 11.4 GM/DL (12.0-16.0); Immature Granulocytes % 0.1 %; Immature Granulocytes Absolute 0.01 #; Lymphocytes # 2.6 10*3/uL (1.4-4.0); Lymphocytes % 38.5 % (21.3-54.2); Mean Corpuscular HGB Conc 31.8 GM/DL (32-36); Mean Corpuscular Volume 91.1 FL (87-102); Mean Platelet Volume 12.3 FL (9.6-12.0); Monocytes % 13.6 % (1.7-12.7); Platelet Count 185 T/CUMM (130-400); Red Blood Count 3.94 MC/CUMM (3.8-5.5); Red Cell Distribution Width 15.5 % (9.3-17.3); White Blood Count 6.9 T/CUMM (4-12)
[2021-01-13 06:17] LABS: Osmolality,Calculated 281.3 MOS/KG (273-304); Potassium 3.5 MMOL/L (3.5-5.1)
[2021-01-13] MEDS: MORPHINE 4 MG/1 ML VIAL IV PRN (06:39)
[2021-01-13 08:05] VITALS: BP 139/74
[2021-01-13] MEDS: ENOXAPARIN 40 MG/0.4 ML SYRINGE SUBCUT SCH (09:44)
[2021-01-13] MEDS: POTASSIUM CHLORIDE 20 MEQ TABLET PO SCH (09:44)
[2021-01-13] MEDS: PANTOPRAZOLE 40 MG TABLET PO SCH (09:44)
== END 2021-01-13 11:29 | disposition home or self-care (01) ==
LOC: N.ED 21:21 → N.EDINP 21:21 → N.5E 01-12 01:15
PROVIDERS: ADMIT Internal Medicine; ATTEND Internal Medicine